=== PATIENT | male | born 1960 | race Caucasian/White ===

== ENCOUNTER → 2017-11-01 | Emergency (ER) | payer OTHER ==
[~2017-11-01] VITALS: Ht 180.3 cm; Wt 131.5 kg
[~2017-11-01] MED LIST: BENZONATATE200 M1; DOXAZOSIN MESYLA4 MG; IOPHEN DM-100 MG/5 M PO; LEVOFLOXACIN750 MG; LOTREL 10/40 MG1 CAP; PENTOXIFYLLINE400 MG; SIMVASTATIN40 MG; TUSSI-PRES PED120 ML; XOPENEX0.63 MG/3 IH
== END | disposition home or self-care (01) ==
LOC: ER 10:50
DX: J06.9 Acute upper respiratory infection, unspecified (principal)

== ENCOUNTER 2018-04-24 08:20 | Emergency (ER) | payer OTHER ==
[~2018-04-24] VITALS: Ht 180.3 cm; Wt 131.5 kg
== END 2018-04-24 14:31 | disposition home or self-care (01) ==
LOC: ER 08:20
DX: R10.11 Right upper quadrant pain (principal)

== ENCOUNTER 2019-11-09 12:14 | Emergency (ER) | payer OTHER ==
[~2019-11-09] VITALS: Ht 180.3 cm; Wt 131.5 kg
[2019-11-09] MEDS ORDERED: NASAL MIST126 ML NASAL (15:44)
[2019-11-09] MEDS ORDERED: MEDROL4 MG PO (15:44)
[2019-11-09] MEDS ORDERED: ZITHROMAX500 MG PO (15:44)
== END 2019-11-09 16:05 | disposition home or self-care (01) ==
LOC: ER 12:14
DX: J45.998 Other asthma (principal); J06.9 Acute upper respiratory infection, unspecified; R09.02 Hypoxemia; R10.11 Right upper quadrant pain

== ENCOUNTER → 2022-09-27 | Outpatient (CLI) | payer OTHER ==
[~2022-09-27] MED LIST changes: +MEDROL4 MG PO; +NASAL MIST126 ML NASAL; +ZITHROMAX500 MG PO
== END | disposition home or self-care (01) ==
LOC: NUCLEAR 08:18
PROVIDERS: ATTEND Specialist
DX: I87.2 Venous insufficiency (chronic) (peripheral) (principal)

== ENCOUNTER 2022-09-30 08:29 | Outpatient (CLI) | payer OTHER | END 2022-09-30 08:35 | disposition home or self-care (01) | LOC: NUCLEAR 08:29 | PROVIDERS: ATTEND Specialist | DX: I73.9 Peripheral vascular disease, unspecified (principal) ==